=== PATIENT | male | born 1960 | race Caucasian/White ===

== ENCOUNTER 2017-03-04 06:56 | Emergency (ER) | payer OTHER ==
[2017-03-04 07:22] LABS: BASOPHILS 0.6 % (0-2); EOSINOPHILS 3.4 % (0-7); HEMATOCRIT 37.2 % (42.0-54.0); HEMOGLOBIN 12.7 g/dL (13.5-17.5); IMMATURE GRANULOCYTES 0.4 % (0-5); LYMPHOCYTES 33.4 % (15-50); MCH 31.2 pg (26.0-34.0); MCHC 34.1 g/dL (31.0-37.0); MCV 91.4 fL (80.0-100.0); MEAN PLATELET VOLUME 10.8 fL (7.4-10.4); MONOCYTES 7.3 % (2-11); NEUTROPHILS 54.9 % (40-80); RBC 4.07 10x6/uL (4.20-6.10); RDW 14.9 % (11.5-14.5); WBC 4.6 10x3/uL (4.8-10.8)
[2017-03-04 07:24] LABS: PLATELET COUNT 155 10x3/uL (130-400)
[2017-03-04 07:58] LABS: ALBUMIN 3.4 g/dL (3.4-5.0); ALKALINE PHOSPHATASE 87 U/L (46-116); ALT (SGPT) 18 U/L (10-68); BILIRUBIN - TOTAL 0.54 mg/dL (0.2-1.3); CALC OSMOLALITY 270 mosm/kg (275-300); CALCIUM 8.4 mg/dL (8.5-10.1); CARBON DIOXIDE 27.1 mmol/L (21.0-32.0); CHLORIDE - SERUM 102 mmol/L (98-107); GLUCOSE 92 mg/dL (74-106); POTASSIUM - SERUM 3.9 mmol/L (3.5-5.1); PROTEIN - SERUM 7.1 g/dL (6.4-8.2); SODIUM 136 mmol/L (136-145); UREA NITROGEN 9 mg/dL (7-18); eGFR NON AFRICAN AMERICAN 82 mL/min (90-120)
== END 2017-03-04 12:54 | disposition home or self-care (01) ==
LOC: D.ER 06:56
PROVIDERS: Emergency Medicine
DX: S82.302A Unspecified fracture of lower end of left tibia, initial encounter for closed fracture (principal); S82.52XA Displaced fracture of medial malleolus of left tibia, initial encounter for closed fracture; V09.9XXA Pedestrian injured in unspecified transport accident, initial encounter; Y93.55 Activity, bike riding; Y92.410 Unspecified street and highway as the place of occurrence of the external cause; S12.000A Unspecified displaced fracture of first cervical vertebra, initial encounter for closed fracture; F17.200 Nicotine dependence, unspecified, uncomplicated

== ENCOUNTER → 2020-11-07 17:59 | Outpatient (CLI) | payer MEDICARE, OTHER | END | disposition home or self-care (01) | LOC: D.LABREF 17:59 | PROVIDERS: ATTEND Orthopaedic Surgery | DX: M19.012 Primary osteoarthritis, left shoulder (principal) ==

== ENCOUNTER 2020-12-05 06:54 | Observation (INO) | payer MEDICARE, OTHER ==
[2020-11-30 15:38] LABS: EOSINOPHILS 1.8 % (0-7); HEMATOCRIT 40.3 % (42.0-54.0); HEMOGLOBIN 13.5 g/dL (13.5-17.5); MCH 32.3 pg (26.0-34.0); MCHC 33.6 g/dL (31.0-37.0); MCV 96.3 fL (80.0-100.0); MEAN PLATELET VOLUME 9.3 fL (7.4-10.4); MONOCYTES 8.7 % (2-11); NEUTROPHILS 47.5 % (40-80); PLATELET COUNT 161 10x3/uL (130-400); RBC 4.18 10x6/uL (4.20-6.10); RDW 14.4 % (11.5-14.5); WBC 4.7 10x3/uL (4.8-10.8)
[2020-11-30 15:43] LABS: BILIRUBIN NEGATIVE (NEGATIVE); KETONE SMALL mg/dL (NEGATIVE); NITRITE NEGATIVE (NEGATIVE); UROBILINOGEN NORMAL mg/dL (< 2)
[2020-11-30 15:45] LABS: CALC OSMOLALITY 273 mosm/kg (275-300); CALCIUM 9.3 mg/dL (8.5-10.1); CARBON DIOXIDE 25.8 mmol/L (21.0-32.0); CHLORIDE - SERUM 101 mmol/L (98-107); GLUCOSE 73 mg/dL (74-106); POTASSIUM - SERUM 3.9 mmol/L (3.5-5.1); SODIUM 138 mmol/L (136-145); UREA NITROGEN 11 mg/dL (7-18); eGFR NON AFRICAN AMERICAN 81 mL/min (90-120)
[2020-11-30 15:57] LABS: INR 1.11 (0.85-1.17); PROTIME 13.3 SECONDS (11.6-15.0)
[2020-11-30 15:58] LABS: APTT 32.2 SECONDS (22.8-39.4)
[2020-12-05] VITALS (13 sets, daily range): BP systolic 102–148; BP diastolic 54–86; Ht 157.5 cm; Wt 72.7 kg
[~2020-12-05] VITALS: Ht 157.5 cm; Wt 72.7 kg
[~2020-12-05 06:54] MED LIST: ACEROLA C500 MG PO; BAYER CHEWABLE81 MG PO; CALCIUM 600 +1 EAC3 PO; CYMBALTA60 MG PO; FLOMAX0.4 MG PO; GABAPENTIN300 MG PO; HYDROCODON-ACE1 EA10 PO; HYDROXYZINE HCL50 MG PO; MAGNESIUM OXID420 MG PO; METHOCARBAMOL500 MG PO; MIDODRINE HCL2.5 MG PO; NAPROXEN SODIU220 M1 PO; OMEPRAZOLE20 M1 PO; OPTIVE SENSITI1 EACH EACH EYE; PROVENTIL/2.5 MG/3 M INH; REMERON15 MG PO; TIROSINT75 MCG PO; VIC-FORTE CAPSUL1 MG PO; VITAMIN B-121000 MCG PO; ZOCOR20 MG PO
--- NOTE | 2020-12-05 12:19 | NUR ---
VOIDED 250CC OF CLEAR YELLOW URINE @1201
--- NOTE | 2020-12-05 13:15 | NUR ---
PATIENT ADMITTED TO ROOM 2230. ADMISSION COMPLETE. VSS. DENIES NEEDS. MEDS WITH NOT GIVEN FOR 0900 PATIENT STATES ALREADY TOOK THIS AM AT HOME. WILL GIVE NOON MEDS ON SEP. BED ALARM ON. CALL RODRIGUEZ AND PERSONAL ITEMS IN REACH. FRIEND AT BEDSIDE.
[2020-12-06] VITALS: BP 111/66
[2020-12-06 04:00] VITALS: BP 131/88
[2020-12-06 08:04] LABS: BASOPHILS 0.5 % (0-2); EOSINOPHILS 2.9 % (0-7); HEMATOCRIT 36.2 % (42.0-54.0); HEMOGLOBIN 12.2 g/dL (13.5-17.5); LYMPHOCYTES 24.4 % (15-50); MCH 32.3 pg (26.0-34.0); MCHC 33.7 g/dL (31.0-37.0); MCV 95.9 fL (80.0-100.0); MEAN PLATELET VOLUME 9.8 fL (7.4-10.4); MONOCYTES 7.2 % (2-11); PLATELET COUNT 151 10x3/uL (130-400); RBC 3.77 10x6/uL (4.20-6.10); RDW 14.6 % (11.5-14.5); WBC 4.9 10x3/uL (4.8-10.8)
[2020-12-06 08:20] LABS: ALBUMIN 2.8 g/dL (3.4-5.0); ALKALINE PHOSPHATASE 44 U/L (30-120); ALT (SGPT) 16 U/L (10-68); BILIRUBIN - TOTAL 0.48 mg/dL (0.2-1.3); CALC OSMOLALITY 276 mosm/kg (275-300); CALCIUM 7.5 mg/dL (8.5-10.1); CHLORIDE - SERUM 105 mmol/L (98-107); CREATININE - SERUM 0.9 mg/dL (0.6-1.3); GLUCOSE 90 mg/dL (74-106); PROTEIN - SERUM 5.8 g/dL (6.4-8.2); SODIUM 140 mmol/L (136-145); UREA NITROGEN 8 mg/dL (7-18); eGFR NON AFRICAN AMERICAN > 90 mL/min (90-120)
[2020-12-06] MEDS ORDERED: PERCOCET 10-321 EAC1 PO (08:39)
[2020-12-06 08:46] VITALS: BP 126/69
--- NOTE | 2020-12-06 08:50 | OP ---
PATIENT NAME: YASIR ANGULO II MEDICAL RECORD: [id number] :59 LOCATION:[id number] ADMISSION DATE:12/05/20 SURGEON: RIKKI ALEXANDER DO DATE OF OPERATION: 12/05/2020 PROCEDURE PERFORMED: Left total shoulder arthroplasty. PREOPERATIVE DIAGNOSIS: Left humeral head avascular necrosis POSTOPERATIVE DIAGNOSIS: Left humeral head avascular necrosis. INDICATIONS: Mr. Angulo is a 60-year-old male who has had left shoulder pain for quite some time. He had x-rays and MRI showing above findings. AVN of the humeral head and rotator cuff was intact. I spoke to them about the risks of this including infection, bleeding, damage to nerve or vessel, need for further surgery, continued pain, failure of hardware, fracture, and even , and he signed the consent. SURGEON: Rikki Alexander DO DESCRIPTION OF PROCEDURE: The patient received block by anesthesia in the preoperative area and taken to the operative suite, placed in supine position, given 900 mg clindamycin and a gram of TXA. He was then sedated and intubated. He was then put in the beach chair position. The left shoulder was prepped and draped in sterile fashion. A timeout was performed. Everyone was in agreement with the correct site, side, patient, and procedure. I then began by marking out the incision over the deltopectoral interval, made careful dissection down to the deltopectoral interval and used a Brady to free up the adhesions of the deltoid on the humerus and used a deltoid retractor, released the proximal centimeter of the pec and tied the long head of the biceps too and then cut the long head of the biceps tendon. I then opened up the rotator interval following the long head of the biceps up into it. I then tagged the subscapularis tendon with two #2 Ethibonds in a Jean-Paul-Brett type stitch and peeled it off the lesser tuberosity and then opened up the joint and exposed the humeral head and then cut it off the guide, removed the head and exposed the glenoid, removed the labrum and put a guide in for size 2 glenoid implant. I then drilled that and reamed and then drilled for the implant and then drilled with 3 peripheral holes around it. I then trialled it and it fit well, had good coverage. I then used cement, cemented in the 3 peripheral pegs and impacted in the actual implant after putting cement on the implant, removed the excess cement, impacted it again. I then exposed the humeral head and reamed down the humerus to a 14 and broached to a 13 fit. The 13 stem fit very well. I then reduced it with a 46 head and reduced it and I got 50% posterior shuck and reduced right away a good size. I then dislocated that, removed the trials, irrigated and put 3 drill holes in the lesser tuberosity and put #2 Ethibond through them and then put the stem in. I then impacted the head on and tied down the subscapularis to the lesser tuberosity and closed the rotator interval. I then cut the sutures, put in 10% povidone-iodine, 500 mL normal saline solution and irrigated with that and then a liter of normal saline. I then put in Peña, vancomycin and tobramycin powder. Bhargavi Milton, certified certified surgical technician, then closed the skin with 2-0 Vicryl in inverted interrupted fashion and 4-0 Monocryl running on the skin and Prineo glue in the skin and covered with Telfa and Tegaderm. He was then awakened, put in a sling and taken to recovery in stable condition. I did send off some bone marrow as it was yellow in color to the lab in a specimen cup. Blood loss was approximately 200 mL. Complications none. OPERATIVE REPORT [id number] YASIR ANGULO II TRANSINT:[id number] Voice Confirmation ID: [id number] DOCUMENT ID: [id number] RIKKI ALEXANDER DO at 0850 CC: [id number] DICTATION DATE: 12/05/20 1139 WELDING MACHINE OPERATOR/TENDER: 12/05/202101 ADM IN [facility] [address] [place] [address]
[2020-12-06 13:10] VITALS: BP 105/68
--- NOTE | 2020-12-06 14:37 | NUR ---
DISCHARGE INSTRUCTIONS GIVEN. PT AND FAMILY VERBALIZED UNDERSTANDING. PT RIDE HERE. IV THERAPY DC'ED FROM TIP INTACT.
== END 2020-12-06 14:39 | disposition home or self-care (01) ==
LOC: D.OPS 06:54 → OBSVTIME 08:52 → D.MS 08:52 → D.OPS 09:00 → D.MS 12:17 → D.OPS 15:00 → D.MS 12-06 14:39
PROVIDERS: Family Medicine; ADMIT Orthopaedic Surgery; ATTEND Orthopaedic Surgery
DX: M87.822 Other osteonecrosis, left humerus (principal); E03.9 Hypothyroidism, unspecified; J44.9 Chronic obstructive pulmonary disease, unspecified; K21.9 Gastro-esophageal reflux disease without esophagitis; Z72.0 Tobacco use; F41.8 Other specified anxiety disorders